=== PATIENT | female | born 1990 | race American Indian/Alaskan Native ===

== ENCOUNTER 2019-02-21 08:42 | Emergency (ER) | payer BC ==
[2019-02-21] MEDS ORDERED: ACETAMINOPHEN 500 MG TAB PO ONE (10:07)
[2019-02-21] MEDS ORDERED: ONDANSETRON 4 MG ODT TAB PO ONE (10:07)
[2019-02-21] MEDS ORDERED: SODIUM CHLORIDE 0.9% 1000 ML 1,000 ML IV ONE (10:07)
--- NOTE | 2019-02-21 10:12 | Emergency Department Report ---
- General Chief Complaint: Upper Respiratory Infection Stated Complaint: FLU LIKE SYMPTOMS Time Seen by Provider: 02/21/19 09:57 Source: patient Mode of arrival: Ambulatory Limitations: No Limitations - History of Present Illness Initial Comments: 28-year-old -[place] female patient complains of cough productive of brown mucus, fever of 101, and bodyaches/chills/headache 2 days. She denies any shortness of breath or chest pain. She admits to decreased intake of food and fluids. She denies trying any OTC medications for her symptoms due to currently breast-feeding a 6-month-old . She admits to nausea, but denies any vomiting or stool changes. MD Complaint: fever, cough, nasal congestion -: Sudden Associated Symptoms: chills, myalgias, headache, nasal congestion, cough, nausea. denies: shortness of breath, abdominal pain, vomiting, diarrhea - Related Data Previous Rx's Medication Instructions Recorded Last Taken Type Benzonatate 200 mg PO TID #20 capsule 02/21/19 Unknown Rx Ibuprofen [Motrin 800 MG tab] 800 mg PO Q8HR PRN #15 tablet 02/21/19 Unknown Rx Ondansetron [Zofran Odt] 4 mg PO Q8HR PRN #15 tab.rapdis 02/21/19 Unknown Rx Oseltamivir [Tamiflu] 75 mg PO BID 5 Days #10 cap 02/21/19 Unknown Rx Allergies Allergy/AdvReac Type Severity Reaction Status Date / Time Sulfa (Sulfonamide Allergy Rash Verified 02/21/19 08:44 Antibiotics) ED Review of Systems ROS: Stated complaint: FLU LIKE SYMPTOMS Other details as noted in HPI Constitutional: see HPI ENT: throat pain Respiratory: cough. denies: shortness of breath Cardiovascular: denies: chest pain, edema Gastrointestinal: nausea. denies: abdominal pain, vomiting, diarrhea, constipation Musculoskeletal: myalgia Skin: denies: rash, lesions Neurological: headache ED Past Medical Hx - Past Medical History Previous Medical History?: Yes Additional medical history: 08-16-2018 - Surgical History Past Surgical History?: Yes Additional Surgical History: - Social History Smoking Status: Never Smoker Substance Use Type: Non Opiate Pain - Medications Home Medications: Home Medications Medication Instructions Recorded Confirmed Last Taken Type Benzonatate 200 mg PO TID #20 capsule 02/21/19 Unknown Rx Ibuprofen [Motrin 800 MG tab] 800 mg PO Q8HR PRN #15 tablet 02/21/19 Unknown Rx Ondansetron [Zofran Odt] 4 mg PO Q8HR PRN #15 tab.rapdis 02/21/19 Unknown Rx Oseltamivir [Tamiflu] 75 mg PO BID 5 Days #10 cap 02/21/19 Unknown Rx ED Physical Exam - General Limitations: No Limitations General appearance: alert, in no apparent distress - Head Head exam: Present: atraumatic, normocephalic - Eye Eye exam: Present: normal appearance. Absent: scleral icterus - ENT ENT exam: Present: normal exam, normal orophraynx, mucous membranes moist - Neck Neck exam: Present: normal inspection, full ROM. Absent: tenderness, lymphadenopathy - Respiratory Respiratory exam: Present: normal lung sounds bilaterally. Absent: respiratory distress, wheezes, rales, rhonchi - Cardiovascular Cardiovascular Exam: Present: normal rhythm, tachycardia. Absent: systolic murmur, diastolic murmur, rubs, gallop - GI/Abdominal GI/Abdominal exam: Present: soft, normal bowel sounds - Back Exam Back exam: Present: normal inspection - Neurological Exam Neurological exam: Present: alert, oriented X3 - Psychiatric Psychiatric exam: Present: normal affect, normal mood - Skin Skin exam: Present: warm, dry, intact, normal color. Absent: rash ED Course Vital Signs 02/21/19 02/21/19 08:44 13:42 Temperature 99.6 F 98.1 F Pulse Rate 114 H 81 Respiratory 18 18 Rate Blood Pressure 114/66 Blood Pressure 121/49 [Left] O2 Sat by Pulse 99 97 Oximetry ED Medical Decision Making - Radiology Data Radiology results: report reviewed Two-view Chest x-ray is negative for any acute findings - Medical Decision Making 28-year-old -[place] female patient complains of cough productive of brown mucus, fever of 101, and bodyaches/chills/headache 2 days. Chest x-ray is negative for pneumonia. Patient appears nontoxic. Exam is without acute findings. Patient states headache is now resolved with ibuprofen and Tylenol. Vitals are normal. Heart rate improved from 114-81 bpm pulse fluids. Patient symptoms and presentation are consistent with influenza or viral syndrome. Patient is stable for discharge home in treatment with Tamiflu. Recommend follow-up with PCP in 5-7 days. Discussed very strict return precautions in great detail with patient verbalizes understanding Critical care attestation.: If time is entered above; I have spent that time in minutes in the direct care of this critically ill patient, excluding procedure time. ED Disposition Clinical Impression: Influenza Disposition: DC-01 TO HOME OR SELFCARE Is pt being admited?: No Condition: Stable Instructions: Influenza (ED) Prescriptions: Benzonatate 200 mg PO TID #20 capsule Ibuprofen [Motrin 800 MG tab] 800 mg PO Q8HR PRN #15 tablet PRN Reason: fever/pain Oseltamivir [Tamiflu] 75 mg PO BID 5 Days #10 cap Ondansetron [Zofran Odt] 4 mg PO Q8HR PRN #15 tab.rapdis PRN Reason: Nausea Referrals: STEPHANIE DASILVA [facility] [Other] - 3-5 Days
[2019-02-21] MEDS ORDERED: IBUPROFEN 800 MG TAB PO ONE (12:12)
[2019-02-21 12:18] LABS: HCG Qualitative,Urine Negative (Negative)
--- NOTE | 2019-02-21 12:57 | XRay Report ---
CHEST 2 VIEWS INDICATION / CLINICAL INFORMATION: cough with brown sputum. COMPARISON: None available. FINDINGS: SUPPORT DEVICES: None. HEART / MEDIASTINUM: No significant abnormality. LUNGS / PLEURA: No significant pulmonary or pleural abnormality. No pneumothorax. ADDITIONAL FINDINGS: No significant additional findings. IMPRESSION: 1. No acute findings. Signer Name: Hank Looney MD Signed: 02/21/2019 12:52 PM Workstation Name: [id number]
[2019-02-21 13:43] VITALS: BP 121/49
== END 2019-02-21 14:02 | disposition home or self-care (01) ==
LOC: ED 08:42
DX: J11.1 Influenza due to unidentified influenza virus with other respiratory manifestations (principal); Z98.890 Other specified postprocedural states; Z79.1 Long term (current) use of non-steroidal anti-inflammatories (NSAID); Z79.899 Other long term (current) drug therapy; Z88.2 Allergy status to sulfonamides
CPT/HCPCS: 71046; 81025; 99284; J7030; Q0162